=== PATIENT | female | born 1955 | race Caucasian/White ===

== ENCOUNTER 2016-11-14 07:20 | Inpatient (IN) | payer BC, OTHER ==
[~2016-11-14] VITALS: Ht 163.8 cm; Wt 123.0 kg
[2016-11-14] VITALS (12 sets, daily range): BP systolic 113–152; BP diastolic 68–91; PULSE 71–98; TEMP 36.4–37.1; O2SAT 94–98; Ht 163.8 cm; Wt 123.0 kg
[~2016-11-14 07:20] MED LIST: CEFAZOLIN 2000 MG/60 ML D5W IV SCH; CEFAZOLIN 3000 MG/65 ML D5W IV SCH; CeleBREX 200 MG CAP PO SCH; LACTATED RINGER'S 1000ML 1,000 ML IV SCH; PREGABALIN 75 MG CAP PO SCH
[2016-11-14] MEDS ORDERED: ASCO1CAP3 PO (08:40)
[2016-11-14] MEDS ORDERED: stelara INJ (08:40)
[2016-11-14] MEDS ORDERED: CYCL10TA6 PO (08:40)
[2016-11-14] MEDS ORDERED: CLR10 PO (08:40)
[2016-11-14] MEDS ORDERED: [UNRECOGNIZED DRUG - OTHER] PO (08:40)
[2016-11-14] MEDS ORDERED: SERT50TA PO (08:40)
[2016-11-14] MEDS ORDERED: [UNRECOGNIZED DRUG - OTHER] PO (08:40)
[2016-11-14] MEDS ORDERED: LISI-725 PO (08:40)
[2016-11-14] MEDS ORDERED: FOLI1TAB7 PO (08:40)
[2016-11-14] MEDS ORDERED: CHOL1000 PO (08:40)
[2016-11-14] MEDS ORDERED: IBAN150T PO (08:40)
[2016-11-14] MEDS ORDERED: MAGN400T6 PO (08:40)
[2016-11-14] MEDS ORDERED: SIMV40TA2 PO (08:40)
[2016-11-14] MEDS ORDERED: COMPLETE VITAMIN PO (08:40)
[2016-11-14] MEDS ORDERED: PROPOFOL IV EMULSION 10 MG/ML 100 ML VIAL IV ONE (08:56)
[2016-11-14] MEDS ORDERED: REMIFENTANIL 1 MG VIAL IV ONE ×2 (08:56→11:28)
[2016-11-14] MEDS ORDERED: LACTATED RINGER'S 1000ML 1,000 ML IV PRN (09:19)
[2016-11-14] MEDS ORDERED: ONDANSETRON INJ 2 MG/ML 2 ML VIAL IV PRN ×2 (09:30→12:45)
[2016-11-14] MEDS ORDERED: MoRPHine SULFATE 10 MG/ML CARP/VIAL IV PRN (09:30)
--- NOTE | 2016-11-14 09:39 | History and Physical ---
History & Physical Date Nov 14, 2016. Chief Complaint neck pain and bilateral hand numbness History of Present Illness The patient is a 61 year old female with complaints of above who has documented progressive cervical myelopathy due to C5-6 and C6-7 disc herniations. She has bilateral hand numbness and balance disturbance. Past Medical/Surgical History HTN tonsillectomy obesity RA-MTX held for 2 weeks depression Additional History Hepatic Disease: No Endocrine Disorder: No Kidney Disease: No Hypertension: Yes Heart Disease: No Bleeding Tendencies: No Infectious Diseases: No Allergies Coded Allergies: Infliximab (Unverified Allergy, Intermediate, rash, 11/14/16) POLLEN (Unverified Allergy, Unknown, PER PRE-ANESTHESIA QUESTIONNAIRE - SEASONAL ALLERGIES, 11/14/16) Home Medications Scheduled Ascorbic Acid (Vitamin C), 500 MG PO DAILY Cholecalciferol (Vitamin D3), 3,000 UNITS PO DAILY Cyclobenzaprine Hcl (Flexeril), 1 TAB PO HS Folic Acid (Folvite), 5 TAB PO DAILY Ibandronate Sodium (Boniva), 150 MG PO MONTHLY Lisinopril (Zestril), 20 MG PO HS Loratadine (Claritin), 10 MG PO DAILY Magnesium Oxide (Mag-Ox), 400 MG PO BID Sertraline (Zoloft), 50 MG PO HS Simvastatin (Zocor), 40 MG PO QPM [complete vitamin 50+], 1 TAB PO DAILY [metheltraxate], 9 TABS PO Sunday [stelara], INJ every 3 months Physical Examination Skin: warm/dry Eyes: normal inspection, sclerae normal ENT: normal ENT inspection Head: normocephalic, atraumatic Neck: supple Respiratory/Chest: lungs clear, no respiratory distress Cardiovascular: regular rate, rhythm Back: normal inspection Extremities: normal inspection, normal range of motion Neurologic/Psych: no motor/sensory deficits, alert, normal reflexes, oriented x 3 Diagnosis Cervical HNP C5-7 and cervical myelopathy Plan of Treatment ACDF C5-7
[2016-11-14] MEDS ORDERED: MIDAZOLAM HCL 1 MG/ML 2ML VIAL ONE (10:13)
[2016-11-14] MEDS ORDERED: FENTANYL CITRATE INJ 50 MCG/1 ML 2 ML VIAL ONE (10:13)
[2016-11-14] MEDS ORDERED: LARYING-O-JET KIT (LTA) EXT ONE ×2 (10:55)
[2016-11-14] MEDS ORDERED: PROPOFOL IV EMULSION 10 MG/ML 20 ML VIAL IV ONE (10:55)
[2016-11-14] MEDS ORDERED: SUCCINYLCHOLINE CHLORIDE 20 MG/ML 10 ML VIAL IV ONE (10:55)
[2016-11-14] MEDS ORDERED: LIDOCAINE HCL 2% 2 ML VIAL (20MG/ML) ONE (10:55)
[2016-11-14] MEDS ORDERED: DEXAMETHASONE SOD INJ 4 MG/ML VIAL ONE (10:55)
[2016-11-14] MEDS ORDERED: ONDANSETRON INJ 2 MG/ML 2 ML VIAL ONE (10:55)
[2016-11-14] MEDS ORDERED: ROCURONIUM BROMIDE 10 MG/ML 5 ML VIAL ONE (10:55)
[2016-11-14] MEDS ORDERED: EpHEDrine SULFATE 50MG/5ML SYR ONE (10:55)
[2016-11-14] MEDS ORDERED: PHENYLEPHRINE 100MCG/ML 5ML SYR ONE (10:57)
[2016-11-14] MEDS ORDERED: THROMBIN 5000 UNITS KIT TOP ONE (12:03)
[2016-11-14] MEDS ORDERED: BACITRACIN 50000 UNIT VIAL IR ONE (12:03)
[2016-11-14] MEDS ORDERED: FLOSEAL HEMOSTATIC MATRIX 5ML TOP ONE (12:03)
[2016-11-14] MEDS ORDERED: OXYC-57 PO (12:15)
--- NOTE | 2016-11-14 12:16 | Discharge Instructions ---
Discharge Instructions Admission Reason for Admission: Spinal Stenosis Discharge Discharge Diagnosis / Problem: Cervical Stenosis Discharge Goals Goal(s): Decrease discomfort, Improve function, Increase independence Activity Recommendations Activity Limitations: as noted below Lifting Limitations: no more than 5 pounds Exercise/Sports Limitations: until after follow-up appointment May Resume Sexual Activity: after follow-up appointment Shower/Bathe: may shower/bathe in 3 days . Instructions / Follow-Up Instructions / Follow-Up ACTIVITY RECOMMENDATIONS: SELF CARE INSTRUCTIONS AFTER CERVICAL FUSIONS 1. No smoking. Smoking drastically decreases the chance of a solid fusion. 2. No bending, lifting more than 5 pounds, or twisting (roll like a log when turning in bed). 3. You may shower 3 days after surgery. Thoroughly dry wound. Do not soak in the tub. 4. Cervical collar: Must be worn at all times including sleeping. You may remove the brace only to bath, eat and if you are sitting in a recliner. 5. Please walk as much as you can for exercise. Gradually increase the distance that you walk as your endurance increases. SPECIAL CARE INSTRUCTIONS: VERY IMPORTANT TO READ AND REVIEW A. Do not take any anti-inflammatory medications (i.e. Indocin, Advil, Aspirin, Naprosyn, Aleve, Motrin, etc.) as these may inhibit the chance of a solid fusion. Tylenol is okay to take. B. Your surgical incision has been closed with a cosmetic suture under the skin that will dissolve in about 6 weeks. In 14 days, you can use a pair of clean scissors and cut the suture that is left outside of the skin at the ends of your incision. C. Complications are uncommon, but please contact us if you have any signs or symptoms of: 1. wound infection (fever higher than 102.5 degrees F, redness, separation of wound, drainage, or increasing pain from the incision) 2. blood clots in legs (pain, swelling, redness and warmth in legs) 3. urinary tract infection (fever higher than 102.5 degrees, burning upon urination or increased frequency of urination) 4. nerve problems (inability to walk on your toes or heels, numbness, loss of bowel or bladder control) 5. any other symptoms that concern you. D. Please call the office at if you have any concerns or questions about your operation or recovery. MANAGING PAIN AFTER SPINAL SURGERY 1. Narcotic medication is intended for short-term use and will be provided for surgical pain. Surgical pain usually lasts for a period of 4-6 weeks. Narcotic medication includes Percocet, Vicodin, Darvocet, Tylenol #3 or Lortab. 2. Longer-term pain is more appropriately treated with non-narcotic medication such as Tylenol ES. 3. Muscle spasm is not appropriately treated with narcotics. Muscle relaxers such as Soma, Flexeril or Skelaxin can be used along with Tylenol ES. 4. Remember that we all live with some "aches and pains". This is not unusual or uncommon after an injury or as we get older. 5. We will provide appropriate medication within the normal guidelines of their prescribed use. We will also be very cautious and aware of potential abuse and extended duration of patients' medication needs. 6. Please allow 2-3 days to process refills. Prescriptions will not be mailed but must be picked up at the office. FOLLOW UP VISIT: Keep your scheduled follow-up appointment. Any questions, please call the office at . Current Hospital Diet Patient's current hospital diet: Discharge Diet Recommended Diet: Regular Diet Procedures Procedures Performed: C5-C7 Anterior Cervical Discectomy and Fusion Pending Studies Studies pending at discharge: no Medical Emergencies . Who to Call and When: Medical Emergencies: If at any time you feel your situation is an emergency, please call 911 immediately. . Non-Emergent Contact Non-Emergency issues call your: Surgeon Call Non-Emergent contact if: temperature is above 101, your pain is not controlled, your pain is worsening, your pain is unusual for you, your pain is concerning you, wound has increased drainage, wound has increased redness, wound has increased pain, you have any medication questions . "Provider Documentation" section prepared by Dayday Moser. VTE Core Measure Inpt VTE Proph given/why not?: Sydney Gardner
--- NOTE | 2016-11-14 12:36 | [facility] Post Operative Brief Note ---
Immediate Operative Summary Operative Date Nov 14, 2016. Pre-Operative Diagnosis Cervical herniated nucleus pulposus C5-7 and cervical myelopathy Post-Operative Diagnosis Same as preoperative diagnosis Procedure(s) Performed C5-C7 Anterior Cervical Discectomy and Fusion Surgeon Dr. Teran Professional Architect Surgeon(s) Ulices Stone PAC Estimated Blood Loss 25 mL Findings dict Specimens No pathology specimens per surgeon
[2016-11-14] MEDS ORDERED: OXYCODONE HCL IR 5 MG TAB (IMMEDIATE RELEASE) PO PRN (12:45)
[2016-11-14] MEDS ORDERED: HYDROmorphone INJ 0.5 MG/0.5 ML SYR IV PRN (12:45)
[2016-11-14] MEDS ORDERED: LORAZEPAM INJ 0.5 MG in SYRINGE 0.75 ML IV PRN (12:45)
[2016-11-14] MEDS ORDERED: DEXAMETHASONE INJ 8 MG in SYRINGE 0 ML IV PRN (12:45)
[2016-11-14] MEDS ORDERED: LORAZEPAM 0.5 MG TAB PO PRN (12:45)
[2016-11-14] MEDS ORDERED: RACEPINEPHRINE 2.25% NEBU SOLN 0.5 ML VIAL INH PRN (12:45)
[2016-11-14] MEDS ORDERED: NALOXONE HCL 0.4 MG/1 ML VIAL/CARP IV PRN (12:45)
[2016-11-14] MEDS ORDERED: ACETAMINOPHEN IV 1,000 MG in EMPTY BAG 0 ML IV PRN (12:45)
[2016-11-14] MEDS ORDERED: DiphenhydrAMINE HCL 50 MG/ML VIAL IV PRN (12:45)
[2016-11-14] MEDS: FENTANYL CITRATE INJ 50 MCG/1 ML 2 ML VIAL IV PRN ×2 (12:49→12:54)
--- NOTE | 2016-11-14 13:04 | OPERATIVE REPORT ---
DATE OF OPERATION: 11/14/2016 PREOPERATIVE DIAGNOSES: 1. Cervical disc herniation C5-6. 2. Cervical disc herniation C6-7. 3. Cervical myelopathy. POSTOPERATIVE DIAGNOSES: Same. PROCEDURES: 1. Anterior cervical discectomy and fusion and application of PEEK intervertebral spacer with local autograft and DBM putty C5-6. 2. Anterior cervical discectomy and fusion and application of PEEK intervertebral spacer with local autograft and DBM putty C6-7. 3. Anterior cervical instrumentation C5-6 and C6-7 with LDR anterior cervical blades. SURGEON: Dr. Teran. INTERIOR DECORATOR: Dayday Moser PA-C. Please note he participated in all portions of the procedure and was critical for performance of the procedure, participated with positioning, prepping, draping, retraction and wound closure. ANESTHESIA: General endotracheal anesthesia. COMPLICATIONS: None. ESTIMATED BLOOD LOSS: Minimal to none. DESCRIPTION OF PROCEDURE: After identification of patient and operative level, she was brought to the OR where she underwent induction of general anesthesia. She was then positioned supine on the [facility] OR table with Bebeto horseshoe head mixer. The arms were tucked at the sides and well padded. Shoulders were taped distally and anterior neck was sterilely prepped and draped in usual fashion. Antibiotics were administered. Time-out was performed. Level was confirmed and transverse skin incision was made on the right side of the neck at the level of the cricoid cartilage. Platysma was divided in line with the incision and routine anterior cervical exposure was performed with blunt dissection medial to the carotid sheath. I identified presumptive disc spaces and marked them with electrocautery and mobilized the longus colli. I then placed a self-retaining cervical retractor deep to the longus colli and applied slight distraction across [place] pins in the body of C5 and C7 and then reconfirmed level. I proceeded to perform complete discectomies at C5-6 and C6-7 with removal of disc material at the posterior osteophytes and the PLL at C5-6 and C6-7. After complete discectomies and foraminotomies at each level, I palpated the nerve roots were free and there was no further spinal cord compression. Spinal cord monitoring was used. There no changes during the procedure. I then decorticated the endplates at C5-6 and C6-7 with a high speed mina and determined graft size with trial sizers. I removed the [place] distraction pins, applied bone wax over the holes and inserted PEEK cages filled with local bone and DBM putty in the C5-6 and C6-7. After insertion of the cage, I used the insertion handles to insert the LDR anterior cervical blade plate into C5, C6, and C7. Following instrumentation, I irrigated with bacitracin solution, confirmed hemostasis, applied FloSeal as necessary and closed over a small round drain. All sponge and needle counts were correct at the end of the case. I attest to the content of the Intraoperative Record and any orders documented therein. Any exceptio ns are noted below.
--- NOTE | 2016-11-14 13:27 | DIAGNOSTIC IMAGING REPORT ---
INTRAOPERATIVE CERVICAL SPINE 3 VIEWS CLINICAL HISTORY: Anterior cervical discectomy and fusion, C5-C6, C6-7. COMPARISON STUDY: No previous studies for comparison. FINDINGS: 13 seconds of fluoroscopic time was utilized. 3 intraoperative fluoroscopic spot images were acquired. There are postsurgical changes of anterior cervical discectomies the C5-6, and C6-7 levels. IMPRESSION: Intraoperative radiographs as described above. Electronically signed by: Lior Jimenez M.D. 11/14/2016 1:25 PM Dictated Date/Time: 11/14/2016 1:24 PM
[2016-11-14] MEDS ORDERED: NURSING VERBAL MED ORDER ONE (13:29)
[2016-11-14] MEDS: LABETALOL HCL IV 5 MG/ML 20ML IV PRN ×2 (13:29→13:55)
--- NOTE | 2016-11-14 14:30 | Anesthesiology Progress Note ---
Anesthesia Post Op Note Date & Time Nov 14, 2016 at 14:29 Vital Signs Pain Intensity: 3 Vital Signs Past 12 Hours Date Time Temp Pulse Resp B/P Pulse Ox O2 Delivery O2 Flow Rate FiO2 11/14/16 14:20 71 16 137/93 97 Nasal Cannula 2 11/14/16 14:05 72 20 125/88 97 Nasal Cannula 2 11/14/16 13:55 36.7 69 18 142/95 96 Nasal Cannula 2 11/14/16 13:45 71 20 142/95 96 Nasal Cannula 2 11/14/16 13:35 73 16 156/92 98 Nasal Cannula 2 11/14/16 13:25 81 16 170/107 98 Nasal Cannula 2 11/14/16 13:15 83 15 165/99 99 Nasal Cannula 2 11/14/16 13:05 83 17 171/101 95 Nasal Cannula 2 11/14/16 12:55 79 18 172/125 98 Nasal Cannula 2 11/14/16 12:45 83 16 179/101 100 Mask 10 11/14/16 12:35 85 16 175/101 100 Mask 10 11/14/16 12:25 36.8 85 17 165/104 100 Mask 10 11/14/16 08:18 36.7 98 18 152/91 95 Room Air Notes Mental Status: alert / awake / arousable, participated in evaluation Pt Amnestic to Procedure: Yes Nausea / Vomiting: adequately controlled Pain: adequately controlled Airway Patency, RR, SpO2: stable & adequate BP & HR: stable & adequate Hydration State: stable & adequate Anesthetic Complications: no major complications apparent
[2016-11-14] MEDS ORDERED: SCOPOLAMINE 1.5 MG TDSY TD ONE (15:30)
[2016-11-14] MEDS: SODIUM CHLORIDE 0.9% 1000ML 1,000 ML IV SCH (16:10)
[2016-11-14] MEDS: DEXAMETHASONE INJ 6 MG in SYRINGE 0 ML IV SCH (18:31)
[2016-11-14] MEDS: CEFAZOLIN IV 1,000 MG in DEXTROSE 5% 50ML 50 ML IV SCH (18:31)
[2016-11-14] MEDS ORDERED: LISINOPRIL 20 MG TAB PO SCH (21:00)
[2016-11-14] MEDS ORDERED: SERTRALINE HCL 50 MG TAB PO SCH (21:00)
[2016-11-14] MEDS ORDERED: CYCLOBENZAPRINE HCL 10 MG TAB PO SCH (21:00)
[2016-11-14] MEDS ORDERED: SIMVASTATIN 40 MG TAB PO SCH (21:00)
[2016-11-14] MEDS: MAGNESIUM OXIDE 400 MG TAB PO SCH (21:21)
[2016-11-14] MEDS: CHECK SCOPOLAMINE PATCH PLACEMENT SCH (23:34)
[2016-11-15] VITALS (9 sets, daily range): BP systolic 109–135; BP diastolic 68–87; PULSE 68–99; TEMP 36.4–36.8; O2SAT 93–98
[2016-11-15] MEDS: CEFAZOLIN IV 1,000 MG in DEXTROSE 5% 50ML 50 ML IV SCH ×2 (01:43→08:41)
[2016-11-15] MEDS: DEXAMETHASONE INJ 6 MG in SYRINGE 0 ML IV SCH (03:37)
[2016-11-15] MEDS: SODIUM CHLORIDE 0.9% 1000ML 1,000 ML IV SCH (03:38)
[2016-11-15] MEDS: CHECK SCOPOLAMINE PATCH PLACEMENT SCH (07:18)
[2016-11-15] MEDS: MAGNESIUM OXIDE 400 MG TAB PO SCH (08:40)
--- NOTE | 2016-11-15 10:04 | Orthopedic Progress Note ---
Orthopedic Progress Note Date of Service Nov 15, 2016. Subjective Reports: feeling well, pain controlled w PO medications, Denies: SOB, calf pain , chest pain, complaints, light headedness, nausea / vomiting Additional Notes: No issues, doing well Objective calves soft nontender, N/V intact, capillary refill less than 2 sec., dressing C /D/I, A&O x3, hemovac drainage Date Time Temp Pulse Resp B/P Pulse Ox O2 Delivery O2 Flow Rate FiO2 11/15/16 09:43 95 16 112/72 95 Room Air 11/15/16 09:10 36.8 88 16 97 Room Air 11/15/16 08:19 16 97 Room Air 11/15/16 07:30 36.8 88 14 135/87 93 Room Air 11/15/16 07:30 Room Air 11/15/16 05:40 36.7 97 18 118/79 95 Room Air 11/15/16 04:15 76 16 96 Room Air 11/15/16 03:30 36.7 98 16 109/70 95 Humidified Oxygen 2.0 Mask 11/15/16 01:30 36.4 99 16 110/68 97 Humidified Oxygen 3.0 Mask 11/15/16 00:35 68 14 98 Nasal Cannula 2.0 11/14/16 23:30 36.8 98 16 113/68 95 Nasal Cannula 2.0 11/14/16 23:30 Nasal Cannula 2.0 Humidified Oxygen 11/14/16 23:15 36.9 94 17 116/68 94 Nasal Cannula 3.0 Humidified Oxygen 11/14/16 21:30 36.8 90 16 122/76 96 Nasal Cannula 3.0 Humidified Oxygen 11/14/16 20:15 77 18 98 Nasal Cannula 2.0 11/14/16 19:30 36.7 81 16 115/71 98 Nasal Cannula 2.0 Humidified Oxygen 11/14/16 17:34 37.1 87 16 137/82 94 Nasal Cannula 2.0 Humidified Oxygen 11/14/16 16:31 36.8 76 16 139/84 96 Nasal Cannula 2.0 Humidified Oxygen 11/14/16 16:04 77 14 98 Nasal Cannula 2.0 11/14/16 15:30 97 Nasal Cannula 2.0 Humidified Oxygen 11/14/16 15:30 36.4 74 16 142/91 96 Nasal Cannula 2.0 Humidified Oxygen 11/14/16 15:00 36.9 71 14 124/84 98 Nasal Cannula 2.0 Humidified Oxygen 11/14/16 14:44 36.9 73 16 132/86 97 Nasal Cannula 2.0 Humidified Oxygen 11/14/16 14:41 96 Nasal Cannula 2.0 11/14/16 14:20 71 16 137/93 97 Nasal Cannula 2 11/14/16 14:05 72 20 125/88 97 Nasal Cannula 2 11/14/16 13:55 36.7 69 18 142/95 96 Nasal Cannula 2 11/14/16 13:45 71 20 142/95 96 Nasal Cannula 2 11/14/16 13:35 73 16 156/92 98 Nasal Cannula 2 11/14/16 13:25 81 16 170/107 98 Nasal Cannula 2 11/14/16 13:15 83 15 165/99 99 Nasal Cannula 2 11/14/16 13:05 83 17 171/101 95 Nasal Cannula 2 11/14/16 12:55 79 18 172/125 98 Nasal Cannula 2 11/14/16 12:45 83 16 179/101 100 Mask 10 11/14/16 12:35 85 16 175/101 100 Mask 10 11/14/16 12:25 36.8 85 17 165/104 100 Mask 10 Assessment & Plan Assessment: s/p cervical fusion Plan: Doing well, discharge home
--- NOTE | 2016-11-15 10:32 | Anesthesiology Progress Note ---
Anesthesia Post Op Note Date & Time Nov 15, 2016 at 10:31 Vital Signs Pain Intensity: 2.0 Vital Signs Past 12 Hours Date Time Temp Pulse Resp B/P Pulse Ox O2 Delivery O2 Flow Rate FiO2 11/15/16 09:43 95 16 112/72 95 Room Air 11/15/16 09:10 36.8 88 16 97 Room Air 11/15/16 08:19 16 97 Room Air 11/15/16 07:30 36.8 88 14 135/87 93 Room Air 11/15/16 07:30 Room Air 11/15/16 05:40 36.7 97 18 118/79 95 Room Air 11/15/16 04:15 76 16 96 Room Air 11/15/16 03:30 36.7 98 16 109/70 95 Humidified Oxygen 2.0 Mask 11/15/16 01:30 36.4 99 16 110/68 97 Humidified Oxygen 3.0 Mask 11/15/16 00:35 68 14 98 Nasal Cannula 2.0 11/14/16 23:30 36.8 98 16 113/68 95 Nasal Cannula 2.0 11/14/16 23:30 Nasal Cannula 2.0 Humidified Oxygen 11/14/16 23:15 36.9 94 17 116/68 94 Nasal Cannula 3.0 Humidified Oxygen Notes Mental Status: alert / awake / arousable, participated in evaluation Pt Amnestic to Procedure: Yes Nausea / Vomiting: adequately controlled Pain: adequately controlled Airway Patency, RR, SpO2: stable & adequate BP & HR: stable & adequate Hydration State: stable & adequate Anesthetic Complications: no major complications apparent
[2016-11-17] MEDS ORDERED: SCOPOLAMINE 1.5 MG TDSY TD SCH (09:00)
--- NOTE | 2016-11-23 12:08 | DISCHARGE SUMMARY ---
PRINCIPAL DIAGNOSIS: Included cervical disc herniation C5-C6, C6-C7, cervical myelopathy. POSTOPERATIVE DIAGNOSIS: Same. PROCEDURE: ACDF C5-C7. SURGEON: Dr. Justin Tearn. BEARING GRINDER: Dayday Moser PA-C. HISTORY OF PRESENT ILLNESS: Please refer to EMR. HOSPITAL COURSE: On 11/14/2016 Ms. Cho was admitted to [facility] with the above diagnosis. She was taken to preoperative holding where she was identified, evaluated and cleared for surgical procedure. She was identified by Dr. Teran and cleared for surgical management, transported to the operating room, introduced with general endotracheal anesthesia. Sterile conditions were set and she successfully underwent the above procedure without complication or issue. She was awakened in stable and satisfactory condition and taken to postoperative recovery in mobilization. Here she was monitored and managed and remained medically stable. She was then taken to the orthopedic floor for continued care. Throughout her stay, her vital signs, and pain were monitored and managed. She had no difficulty breathing or swallowing. DVT prophylactic measures were taken. There were no issues or complications. She was evaluated on 11/15/2016 and after evaluation indicated for return home. On this date, she was discharged from [facility]. DISPOSITION: Home. DISPOSITION CONDITION: Stable. NOTED COMPLICATIONS OR ISSUES: Zero. DISCHARGE INSTRUCTIONS: Please refer to EMR.
== END 2016-11-15 10:44 | disposition home or self-care (01) | DRG 472 ==
LOC: ENRESERVDT → ENRESERVTM → C.ACU 07:20 → C.3E 12:39
PROVIDERS: ADMIT Orthopaedic Surgery Orthopaedic Surgery of the Spine; ATTEND Orthopaedic Surgery Orthopaedic Surgery of the Spine
PROC: 0RG20A0 Fusion of 2 or more Cervical Vertebral Joints with Interbody Fusion Device, Anterior Approach, Anterior Column, Open Approach (ICD-10-PCS; principal; 2016-11-14 09:30)
PROC: 0RT30ZZ Resection of Cervical Vertebral Disc, Open Approach (ICD-10-PCS; principal; 2016-11-14 09:30)
DX: M50.022 Cervical disc disorder at C5-C6 level with myelopathy (principal); Z68.42 Body mass index [BMI] 45.0-49.9, adult; R20.9 Unspecified disturbances of skin sensation; I10 Essential (primary) hypertension; E78.5 Hyperlipidemia, unspecified; R73.03 Prediabetes; F32.9 Major depressive disorder, single episode, unspecified; E66.9 Obesity, unspecified; Z79.83 Long term (current) use of bisphosphonates; Z79.899 Other long term (current) drug therapy